=== PATIENT | female | born 1935 | race African-American/Black ===

== ENCOUNTER 2019-04-23 13:37 | Inpatient (IN) | payer MEDICARE, BC ==
[~2019-04-23] VITALS: Ht 154.9 cm; Wt 57.2 kg
[~2019-04-23 13:37] MED LIST: NO
[2019-04-23] MEDS ORDERED: AMLODIPINE BES2.5 MG PO (14:12)
[2019-04-23 14:27] LABS: HEMATOCRIT 37.9 % (37.0-47.0); HEMOGLOBIN 12.1 g/dl (12.0-16.0); IMMATURE GRANULOCYTES 0.3 % (0.0-5.0); MEAN CELL VOLUME 87.1 fL CALC (80.0-100.0); MEAN CORPUSCULAR HGB 27.8 pG CALC (26.0-32.0); MEAN CORPUSCULAR HGB CONC 31.9 g/L CALC (32.0-36.0); NEUT# 4.41 thou/uL (2.00-7.15); RED BLOOD COUNT 4.35 mill/uL (4.20-5.60)
[2019-04-23 14:41] LABS: ALBUMIN 4.2 g/dL (3.2-5.0); AMYLASE 113 u/l (30-110); ANION GAP 17 (6-22 (CALC)); BUN 14 mg/dL (8-23); BUN/CREATININE RATIO 31 (12-20 (CALC)); CARBON DIOXIDE 27 mmol/l (22-30); CHLORIDE 94 mmol/l (95-108); CREATININE 0.5 mg/dL (0.5-1.0); GFR > 60 ML/MIN (>=60 (CALC)); GFR FOR AFR.AMER. > 60 ML/MIN (>=60 (CALC)); LIPASE 55 u/l (23-300); POTASSIUM 3.4 mmol/l (3.5-5.1); SODIUM 134 mmol/l (137-146); TOTAL PROTEIN 8.5 g/dL (6.3-8.2)
[2019-04-23 14:47] LABS: ALKALINE PHOSPHATASE 212 u/l (38-126); BILIRUBIN, TOTAL 1.4 mg/dL (0.0-1.4); SGOT/AST 43 u/l (9-36)
[2019-04-23 14:53] LABS: MYOGLOBIN 32 ng/mL (0 - 62)
[2019-04-23 16:09] LABS: URINE BILIRUBIN - DIPSTICK NEGATIVE (NEGATIVE); URINE BLOOD DIPSTICK NEGATIVE (NEGATIVE); URINE COLOR YELLOW; URINE GLUCOSE - DIPSTICK NEGATIVE (NEGATIVE); URINE KETONE NEGATIVE (NEGATIVE); URINE LEUK ESTERASE NEGATIVE (NEGATIVE); URINE NITRITE - DIPSTICK NEGATIVE (Negative); URINE PROTEIN - DIPSTICK NEGATIVE (NEG-TRACE); URINE SPECIFIC GRAVITY <=1.005
[2019-04-23 18:02] VITALS: BP 127/66
[2019-04-23 19:20] VITALS: BP 107/52
[2019-04-24 04:00] VITALS: BP 117/59
[2019-04-24 08:00] VITALS: BP 112/56
[2019-04-24 08:37] LABS: ALKALINE PHOSPHATASE 139 u/l (38-126); ANION GAP 11 (6-22 (CALC)); BILIRUBIN, TOTAL 1.2 mg/dL (0.0-1.4); BUN 12 mg/dL (8-23); BUN/CREATININE RATIO 23 (12-20 (CALC)); CARBON DIOXIDE 29 mmol/l (22-30); CHLORIDE 103 mmol/l (95-108); CREATININE 0.5 mg/dL (0.5-1.0); GFR > 60 ML/MIN (>=60 (CALC)); GFR FOR AFR.AMER. > 60 ML/MIN (>=60 (CALC)); POTASSIUM 3.6 mmol/l (3.5-5.1); SGOT/AST 28 u/l (9-36); SODIUM 140 mmol/l (137-146)
[2019-04-24 09:02] LABS: TOTAL PROTEIN 6.2 g/dL (6.3-8.2)
[2019-04-24 14:33] VITALS: BP 119/59
[2019-04-24 17:54] VITALS: BP 139/63
[2019-04-25 04:27] VITALS: BP 117/62
[2019-04-25 04:50] LABS: HEMATOCRIT 34.6 % (37.0-47.0); HEMOGLOBIN 10.9 g/dl (12.0-16.0); MEAN CELL VOLUME 89.4 fL CALC (80.0-100.0); MEAN CORPUSCULAR HGB 28.2 pG CALC (26.0-32.0); MEAN CORPUSCULAR HGB CONC 31.5 g/L CALC (32.0-36.0); RED BLOOD COUNT 3.87 mill/uL (4.20-5.60); RED CELL DISTRI WIDTH 13.1 % (11.5-15.5)
[2019-04-25 05:03] LABS: ALBUMIN 3.6 g/dL (3.2-5.0); ALKALINE PHOSPHATASE 156 u/l (38-126); ANION GAP 14 (6-22 (CALC)); BUN 11 mg/dL (8-23); BUN/CREATININE RATIO 25 (12-20 (CALC)); CARBON DIOXIDE 30 mmol/l (22-30); CHLORIDE 99 mmol/l (95-108); CREATININE 0.4 mg/dL (0.5-1.0); GFR > 60 ML/MIN (>=60 (CALC)); GFR FOR AFR.AMER. > 60 ML/MIN (>=60 (CALC)); POTASSIUM 3.4 mmol/l (3.5-5.1); SGOT/AST 29 u/l (9-36); SODIUM 140 mmol/l (137-146)
[2019-04-25 07:24] VITALS: BP 125/71
[2019-04-25 15:07] VITALS: BP 148/75
[2019-04-25 19:32] VITALS: BP 135/64
[2019-04-26 04:37] VITALS: BP 139/72
[2019-04-26 05:37] LABS: HEMOGLOBIN 10.7 g/dl (12.0-16.0); MEAN CELL VOLUME 89.5 fL CALC (80.0-100.0); MEAN CORPUSCULAR HGB 28.2 pG CALC (26.0-32.0); MEAN CORPUSCULAR HGB CONC 31.5 g/L CALC (32.0-36.0); RED BLOOD COUNT 3.8 mill/uL (4.20-5.60)
[2019-04-26 05:41] LABS: ANION GAP 14 (6-22 (CALC)); BUN 7 mg/dL (8-23); BUN/CREATININE RATIO 17 (12-20 (CALC)); CARBON DIOXIDE 29 mmol/l (22-30); CHLORIDE 101 mmol/l (95-108); CREATININE 0.4 mg/dL (0.5-1.0); GFR > 60 ML/MIN (>=60 (CALC)); GFR FOR AFR.AMER. > 60 ML/MIN (>=60 (CALC)); POTASSIUM 3.8 mmol/l (3.5-5.1); SODIUM 139 mmol/l (137-146)
[2019-04-26 08:05] VITALS: BP 132/71
[2019-04-26 09:08] VITALS: BP 132/71
== END 2019-04-26 10:24 | disposition home or self-care (01) | DRG 390 ==
LOC: ED 13:37 → ED-I 16:08 → ED 16:12 → ICU 16:13 → MS2 16:13 → ICU 04-24 03:57 → MS2 04-24 07:23 → ICU 04-24 07:23 → MS2 04-24 17:48
PROVIDERS: Emergency Medicine; Internal Medicine; ADMIT Internal Medicine; ATTEND Internal Medicine
PROC: 0D9670Z Drainage of Stomach with Drainage Device, Via Natural or Artificial Opening (ICD-10-PCS; principal; 2019-04-23)
DX: K56.609 Unspecified intestinal obstruction, unspecified as to partial versus complete obstruction (principal); I10 Essential (primary) hypertension; K57.30 Diverticulosis of large intestine without perforation or abscess without bleeding
CPT/HCPCS: G0378; Q9967

== ENCOUNTER 2019-04-27 20:23 | Emergency (ER) | payer MEDICARE, BC ==
[~2019-04-27] VITALS: Ht 154.9 cm; Wt 56.4 kg
[~2019-04-27 20:23] MED LIST changes: +AMLODIPINE BES2.5 MG PO
[2019-04-27 21:27] LABS: HEMATOCRIT 38.6 % (37.0-47.0); HEMOGLOBIN 12.3 g/dl (12.0-16.0); IMMATURE GRANULOCYTES 0.4 % (0.0-5.0); MEAN CELL VOLUME 87.1 fL CALC (80.0-100.0); MEAN CORPUSCULAR HGB 27.8 pG CALC (26.0-32.0); MEAN CORPUSCULAR HGB CONC 31.9 g/L CALC (32.0-36.0); NEUT# 6.77 thou/uL (2.00-7.15); RED BLOOD COUNT 4.43 mill/uL (4.20-5.60); RED CELL DISTRI WIDTH 13.1 % (11.5-15.5)
[2019-04-27 21:49] LABS: ALBUMIN 4.2 g/dL (3.2-5.0); ALKALINE PHOSPHATASE 141 u/l (38-126); ANION GAP 19 (6-22 (CALC)); BILIRUBIN, TOTAL 1.1 mg/dL (0.0-1.4); BUN 19 mg/dL (8-23); BUN/CREATININE RATIO 41 (12-20 (CALC)); CARBON DIOXIDE 26 mmol/l (22-30); CHLORIDE 96 mmol/l (95-108); CREATININE 0.5 mg/dL (0.5-1.0); GFR > 60 ML/MIN (>=60 (CALC)); GFR FOR AFR.AMER. > 60 ML/MIN (>=60 (CALC)); POTASSIUM 3.9 mmol/l (3.5-5.1); SGOT/AST 29 u/l (9-36); SODIUM 138 mmol/l (137-146); TOTAL PROTEIN 7.9 g/dL (6.3-8.2)
[2019-04-27 23:45] VITALS: BP 120/60
== END 2019-04-27 23:50 | disposition home or self-care (01) ==
LOC: ED 20:23
PROVIDERS: Family Medicine
DX: K59.00 Constipation, unspecified (principal); I10 Essential (primary) hypertension

== ENCOUNTER 2019-05-04 14:17 | Inpatient (IN) | payer MEDICARE, BC ==
[~2019-05-04] VITALS: Ht 154.9 cm; Wt 58.2 kg
[2019-05-04 14:40] VITALS: BP 113/51
[2019-05-04 16:20] LABS: IMMATURE GRANULOCYTES 3.2 % (0.0-5.0); MEAN CELL VOLUME 89.9 fL CALC (80.0-100.0); MEAN CORPUSCULAR HGB 27.9 pG CALC (26.0-32.0); MEAN CORPUSCULAR HGB CONC 31.1 g/L CALC (32.0-36.0); NEUT# 8.65 thou/uL (2.00-7.15); RED BLOOD COUNT 3.58 mill/uL (4.20-5.60); RED CELL DISTRI WIDTH 13.5 % (11.5-15.5)
[2019-05-04 16:25] LABS: HEMATOCRIT 32.2 % (37.0-47.0)
[2019-05-04 16:35] LABS: ALKALINE PHOSPHATASE 90 u/l (38-126); BILIRUBIN, TOTAL 0.8 mg/dL (0.0-1.4); BUN 11 mg/dL (8-23); BUN/CREATININE RATIO 33 (12-20 (CALC)); CHLORIDE 98 mmol/l (95-108); CREATININE 0.3 mg/dL (0.5-1.0); GFR > 60 ML/MIN (>=60 (CALC)); GFR FOR AFR.AMER. > 60 ML/MIN (>=60 (CALC)); SGOT/AST 24 u/l (9-36); SODIUM 140 mmol/l (137-146)
[2019-05-04 16:36] LABS: ALBUMIN 2.4 g/dL (3.2-5.0); ANION GAP 6 (6-22 (CALC)); CARBON DIOXIDE 39 mmol/l (22-30); TOTAL PROTEIN 5.5 g/dL (6.3-8.2)
[2019-05-04 19:33] VITALS: BP 104/61
[2019-05-05 04:42] VITALS: BP 113/65
[2019-05-05 05:09] LABS: HEMATOCRIT 30.5 % (37.0-47.0); HEMOGLOBIN 9.4 g/dl (12.0-16.0); MEAN CELL VOLUME 89.7 fL CALC (80.0-100.0); MEAN CORPUSCULAR HGB 27.6 pG CALC (26.0-32.0); MEAN CORPUSCULAR HGB CONC 30.8 g/L CALC (32.0-36.0); RED BLOOD COUNT 3.4 mill/uL (4.20-5.60); RED CELL DISTRI WIDTH 13.8 % (11.5-15.5)
[2019-05-05 05:37] LABS: ALBUMIN 2.1 g/dL (3.2-5.0); ALKALINE PHOSPHATASE 81 u/l (38-126); ANION GAP 6 (6-22 (CALC)); BILIRUBIN, TOTAL 0.6 mg/dL (0.0-1.4); BUN 7 mg/dL (8-23); BUN/CREATININE RATIO 22 (12-20 (CALC)); CARBON DIOXIDE 34 mmol/l (22-30); CHLORIDE 102 mmol/l (95-108); CREATININE 0.3 mg/dL (0.5-1.0); GFR > 60 ML/MIN (>=60 (CALC)); GFR FOR AFR.AMER. > 60 ML/MIN (>=60 (CALC)); POTASSIUM 3.1 mmol/l (3.5-5.1); SGOT/AST 21 u/l (9-36); SODIUM 139 mmol/l (137-146)
[2019-05-05 10:01] VITALS: BP 122/63
[2019-05-05 15:16] VITALS: BP 128/71
[2019-05-05] MEDS ORDERED: XALATAN0.005 % OU (15:37)
[2019-05-05 20:15] VITALS: BP 109/70
[2019-05-06 04:17] LABS: HEMATOCRIT 27.6 % (37.0-47.0); HEMOGLOBIN 8.6 g/dl (12.0-16.0); MEAN CELL VOLUME 89.3 fL CALC (80.0-100.0); MEAN CORPUSCULAR HGB 27.8 pG CALC (26.0-32.0); MEAN CORPUSCULAR HGB CONC 31.2 g/L CALC (32.0-36.0); RED BLOOD COUNT 3.09 mill/uL (4.20-5.60); RED CELL DISTRI WIDTH 13.9 % (11.5-15.5)
[2019-05-06 04:35] LABS: ALBUMIN 1.9 g/dL (3.2-5.0); ALKALINE PHOSPHATASE 77 u/l (38-126); ANION GAP 6 (6-22 (CALC)); BILIRUBIN, TOTAL 0.7 mg/dL (0.0-1.4); BUN 6 mg/dL (8-23); BUN/CREATININE RATIO 23 (12-20 (CALC)); CARBON DIOXIDE 32 mmol/l (22-30); CHLORIDE 103 mmol/l (95-108); CREATININE 0.3 mg/dL (0.5-1.0); GFR > 60 ML/MIN (>=60 (CALC)); GFR FOR AFR.AMER. > 60 ML/MIN (>=60 (CALC)); POTASSIUM 3.1 mmol/l (3.5-5.1); SGOT/AST 20 u/l (9-36); SODIUM 137 mmol/l (137-146); TOTAL PROTEIN 4.7 g/dL (6.3-8.2)
[2019-05-06 04:42] VITALS: BP 104/66
[2019-05-06 07:50] VITALS: BP 111/69
[2019-05-06 14:55] VITALS: BP 108/67
[2019-05-06 19:11] VITALS: BP 101/59
[2019-05-07 04:30] VITALS: BP 122/74
[2019-05-07 05:05] LABS: ANION GAP 11 (6-22 (CALC)); BUN 7 mg/dL (8-23); BUN/CREATININE RATIO 29 (12-20 (CALC)); CARBON DIOXIDE 29 mmol/l (22-30); CHLORIDE 102 mmol/l (95-108); CREATININE 0.2 mg/dL (0.5-1.0); GFR > 60 ML/MIN (>=60 (CALC)); GFR FOR AFR.AMER. > 60 ML/MIN (>=60 (CALC)); POTASSIUM 2.8 mmol/l (3.5-5.1); SODIUM 139 mmol/l (137-146)
[2019-05-07 07:40] VITALS: BP 115/74
[2019-05-07 15:37] VITALS: BP 105/43
[2019-05-07 19:16] VITALS: BP 107/53
[2019-05-08 04:00] VITALS: BP 113/68
[2019-05-08 05:28] LABS: ANION GAP 9 (6-22 (CALC)); BUN 4 mg/dL (8-23); BUN/CREATININE RATIO 13 (12-20 (CALC)); CARBON DIOXIDE 31 mmol/l (22-30); CHLORIDE 101 mmol/l (95-108); CREATININE 0.3 mg/dL (0.5-1.0); GFR > 60 ML/MIN (>=60 (CALC)); GFR FOR AFR.AMER. > 60 ML/MIN (>=60 (CALC)); POTASSIUM 2.6 mmol/l (3.5-5.1); SODIUM 138 mmol/l (137-146)
[2019-05-08 07:22] VITALS: BP 105/80
[2019-05-08 11:10] VITALS: BP 96/55
[2019-05-08] MEDS ORDERED: K-DUR/KLOR-CON20 MEQ PO (11:12)
[2019-05-08 14:03] LABS: HEMATOCRIT 29.7 % (37.0-47.0); HEMOGLOBIN 9.3 g/dl (12.0-16.0); MEAN CELL VOLUME 88.4 fL CALC (80.0-100.0); MEAN CORPUSCULAR HGB 27.7 pG CALC (26.0-32.0); MEAN CORPUSCULAR HGB CONC 31.3 g/L CALC (32.0-36.0); RED BLOOD COUNT 3.36 mill/uL (4.20-5.60); RED CELL DISTRI WIDTH 13.7 % (11.5-15.5)
[2019-05-08 14:40] LABS: MAGNESIUM 1.9 mg/dL (1.6-2.3); POTASSIUM 2.4 mmol/l (3.5-5.1)
[2019-05-08 15:07] VITALS: BP 115/69
[2019-05-08 20:08] VITALS: BP 123/57
[2019-05-09 00:39] VITALS: BP 135/69
[2019-05-09 05:04] LABS: HEMATOCRIT 27.8 % (37.0-47.0); HEMOGLOBIN 8.7 g/dl (12.0-16.0); MEAN CORPUSCULAR HGB 27.5 pG CALC (26.0-32.0); MEAN CORPUSCULAR HGB CONC 31.3 g/L CALC (32.0-36.0); RED BLOOD COUNT 3.16 mill/uL (4.20-5.60); RED CELL DISTRI WIDTH 13.6 % (11.5-15.5)
[2019-05-09 05:08] VITALS: BP 104/59
[2019-05-09 05:24] LABS: ALBUMIN 1.9 g/dL (3.2-5.0); ALKALINE PHOSPHATASE 93 u/l (38-126); BILIRUBIN, TOTAL 0.6 mg/dL (0.0-1.4); BUN 3 mg/dL (8-23); BUN/CREATININE RATIO 11 (12-20 (CALC)); CARBON DIOXIDE 32 mmol/l (22-30); CHLORIDE 102 mmol/l (95-108); CREATININE 0.3 mg/dL (0.5-1.0); GFR > 60 ML/MIN (>=60 (CALC)); GFR FOR AFR.AMER. > 60 ML/MIN (>=60 (CALC)); MAGNESIUM 1.9 mg/dL (1.6-2.3); SGOT/AST 23 u/l (9-36); SODIUM 138 mmol/l (137-146); TOTAL PROTEIN 4.6 g/dL (6.3-8.2)
[2019-05-09 05:32] LABS: ANION GAP 7 (6-22 (CALC)); POTASSIUM 3.1 mmol/l (3.5-5.1)
[2019-05-09 08:20] VITALS: BP 86/50
[2019-05-09 10:15] VITALS: BP 86/52
[2019-05-09 14:30] VITALS: BP 123/71
[2019-05-09 20:46] VITALS: BP 95/52
[2019-05-10 04:06] VITALS: BP 113/65
[2019-05-10 05:36] LABS: URINE BILIRUBIN - DIPSTICK NEGATIVE (NEGATIVE); URINE BLOOD DIPSTICK NEGATIVE (NEGATIVE); URINE COLOR YELLOW; URINE GLUCOSE - DIPSTICK NEGATIVE (NEGATIVE); URINE KETONE NEGATIVE (NEGATIVE); URINE LEUK ESTERASE NEGATIVE (Negative); URINE NITRITE - DIPSTICK NEGATIVE (Negative); URINE PROTEIN - DIPSTICK NEGATIVE (NEG-TRACE); URINE SPECIFIC GRAVITY 1.015
[2019-05-10 05:36] LABS: HEMATOCRIT 30.4 % (37.0-47.0); HEMOGLOBIN 9.3 g/dl (12.0-16.0); MEAN CELL VOLUME 89.9 fL CALC (80.0-100.0); MEAN CORPUSCULAR HGB 27.5 pG CALC (26.0-32.0); MEAN CORPUSCULAR HGB CONC 30.6 g/L CALC (32.0-36.0); RED BLOOD COUNT 3.38 mill/uL (4.20-5.60)
[2019-05-10 05:40] LABS: URINE CLARITY CLEAR
[2019-05-10 05:52] LABS: ALBUMIN 2.1 g/dL (3.2-5.0); ALKALINE PHOSPHATASE 101 u/l (38-126); ANION GAP 9 (6-22 (CALC)); BILIRUBIN, TOTAL 0.7 mg/dL (0.0-1.4); BUN 3 mg/dL (8-23); BUN/CREATININE RATIO 11 (12-20 (CALC)); CARBON DIOXIDE 31 mmol/l (22-30); CHLORIDE 105 mmol/l (95-108); CREATININE 0.2 mg/dL (0.5-1.0); GFR > 60 ML/MIN (>=60 (CALC)); GFR FOR AFR.AMER. > 60 ML/MIN (>=60 (CALC)); SGOT/AST 35 u/l (9-36); SODIUM 141 mmol/l (137-146); TOTAL PROTEIN 5.3 g/dL (6.3-8.2)
[2019-05-10 05:55] LABS: POTASSIUM 3.8 mmol/l (3.5-5.1)
[2019-05-10] MEDS ORDERED: AMOX/K CLAV875 M1 PO (09:14)
[2019-05-10] MEDS ORDERED: MAG-OX 400400 MG PO (09:16)
== END 2019-05-10 14:30 | DRG 622 ==
LOC: MS2 14:17
PROVIDERS: Internal Medicine; Internal Medicine Nephrology; Nurse Practitioner Family; ADMIT Internal Medicine; ATTEND Internal Medicine
PROC: 0JB70ZZ Excision of Back Subcutaneous Tissue and Fascia, Open Approach (ICD-10-PCS; principal; 2019-05-08)
PROC: 0J970ZZ Drainage of Back Subcutaneous Tissue and Fascia, Open Approach (ICD-10-PCS; 2019-05-08)
DX: E43 Unspecified severe protein-calorie malnutrition (principal); L89.154 Pressure ulcer of sacral region, stage 4; L02.31 Cutaneous abscess of buttock; E87.6 Hypokalemia; I10 Essential (primary) hypertension; E83.42 Hypomagnesemia; D64.9 Anemia, unspecified; R62.7 Adult failure to thrive; M19.90 Unspecified osteoarthritis, unspecified site; F32.9 Major depressive disorder, single episode, unspecified; B96.20 Unspecified Escherichia coli [E. coli] as the cause of diseases classified elsewhere; B95.2 Enterococcus as the cause of diseases classified elsewhere; Z68.24 Body mass index [BMI] 24.0-24.9, adult
CPT/HCPCS: G0378; G0379; J3475

== ENCOUNTER 2019-08-18 | Emergency (ER) | payer MEDICARE, BC ==
[~2019-08-18] MED LIST changes: +AMOX/K CLAV875 M1 PO; +K-DUR/KLOR-CON20 MEQ PO; +MAG-OX 400400 MG PO; +XALATAN0.005 % OU
[2019-08-18] MEDS ORDERED: FUROSEMIDE20 MG PO (14:07)
[2019-08-18] MEDS ORDERED: REMERON15 MG PO (14:08)
[2019-08-18] MEDS ORDERED: TRAMADOL HCL50 MG PO (14:10)
[2019-08-18 14:31] LABS: HEMATOCRIT 35.4 % (37.0-47.0); HEMOGLOBIN 10.6 g/dl (12.0-16.0); IMMATURE GRANULOCYTES 0.9 % (0.0-5.0); MEAN CELL VOLUME 93.9 fL CALC (80.0-100.0); MEAN CORPUSCULAR HGB 28.1 pG CALC (26.0-32.0); MEAN CORPUSCULAR HGB CONC 29.9 g/L CALC (32.0-36.0); NEUT# 20.06 thou/uL (2.00-7.15); RED BLOOD COUNT 3.77 mill/uL (4.20-5.60); RED CELL DISTRI WIDTH 16.6 % (11.5-15.5)
[2019-08-18 14:48] LABS: ALBUMIN 2.5 g/dL (3.2-5.0); ANION GAP 12 (6-22 (CALC)); BUN 17 mg/dL (8-23); BUN/CREATININE RATIO 60 (12-20 (CALC)); CARBON DIOXIDE 26 mmol/l (22-30); CHLORIDE 100 mmol/l (95-108); CREATININE 0.3 mg/dL (0.5-1.0); GFR > 60 ML/MIN (>=60 (CALC)); GFR FOR AFR.AMER. > 60 ML/MIN (>=60 (CALC)); POTASSIUM 3.9 mmol/l (3.5-5.1); SODIUM 135 mmol/l (137-146)
[2019-08-18 14:49] LABS: URINE COLOR DK. YELLOW
[2019-08-18 14:57] LABS: URINE BACTERIA FEW hpf; URINE CALCIUM OXALATE CRYSTALS FEW lpf; URINE EPITHELIAL CELLS RARE EPI/hpf (0-FEW); URINE WBC 0-2 WBC/hpf (0-5)
[2019-08-18 15:03] LABS: ALKALINE PHOSPHATASE 2094 u/l (38-126); BILIRUBIN, TOTAL 2.9 mg/dL (0.0-1.4); SGOT/AST 222 u/l (9-36); TOTAL PROTEIN 6.7 g/dL (6.3-8.2)
== END 2019-08-18 21:25 | disposition short-term general hospital (02) ==
PROVIDERS: Family Medicine
DX: L89.152 Pressure ulcer of sacral region, stage 2 (principal); L02.212 Cutaneous abscess of back [any part, except buttock and flank]; K76.9 Liver disease, unspecified; E80.6 Other disorders of bilirubin metabolism; I10 Essential (primary) hypertension; R94.31 Abnormal electrocardiogram [ECG] [EKG]
CPT/HCPCS: J0692; Q9967